=== PATIENT | female | born 1940 | race Caucasian/White ===

== ENCOUNTER 2018-10-10 16:24 | Inpatient (IN) | payer MEDICARE, OTHER ==
[~2018-10-10] VITALS: Ht 157.5 cm; Wt 48.5 kg
[2018-10-10] MEDS ORDERED: ONDANSETRON HCL/PF 4 MG/2 ML VIAL IVP ONE (16:30)
[2018-10-10] MEDS ORDERED: IV NS 0.9% 500 ML BAG IV ONE (16:30)
--- NOTE | 2018-10-10 16:37 | NUR ---
PT BIBRA FROM HOME FOR ABD PAIN. PER REPORT PT'S BEEN CONSTIPATED, HAD SMALL BM THIS AM. PT AAOX4, RESIPIRATIONS EVEN AND UNLABORED, NO SOB, NAD NOTED, VSS, PENDING ER PROVIDER ANAHIAL
[2018-10-10] MEDS ORDERED: ONDANSETRON HCL/PF 4 MG/2 ML VIAL ONE ×2 (16:38→17:36)
[2018-10-10 16:40] LABS: BASOPHILS # (AUTO) 0.1 /CMM (0.0-0.2); BASOPHILS % (AUTO) 0.5 % (0.0-2.0); EOSINOPHILS % (AUTO) 1.5 % (0.0-6.0); HEMATOCRIT 46 % (33-45); HEMOGLOBIN 15.4 g/dL (11.5-14.8); LYMPHOCYTES # (AUTO) 2.7 /CMM (0.8-4.8); LYMPHOCYTES % (AUTO) 24.7 % (20.0-44.0); MEAN CORPUSCULAR HGB CONC 34 g/dl (31.0-36.0); MEAN CORPUSCULAR VOLUME 93 fL (82-100); MONOCYTES # (AUTO) 0.6 /CMM (0.1-1.30); MONOCYTES % (AUTO) 5.5 % (2.0-12.0); NEUTROPHILS # (AUTO) 7.5 /CMM (1.8-8.9); NEUTROPHILS % (AUTO) 67.8 % (43.0-81.0); PLATELET COUNT (AUTO) 299 /CMM (150-450); WHITE BLOOD COUNT (AUTO) 11.1 K/uL (4.3-11.0)
[2018-10-10 16:46] LABS: CARBON DIOXIDE 28 mmol/L (21-32); CHLORIDE 104 mmol/L (98-107); GLUCOSE 177 mg/dL (74-106); POTASSIUM 3.3 mmol/L (3.5-5.1); SODIUM SERUM 141 mmol/L (136-145); UREA NITROGEN, BLOOD 16 mg/dL (7-18)
[2018-10-10 16:52] LABS: ALANINE AMINOTRANSFERASE 24 U/L (12-78); ALBUMIN 3.6 g/dL (3.4-5.0); ALKALINE PHOSPHATASE 66 U/L (46-116); ASPARTATE AMINOTRANSFERASE 19 U/L (15-37); BILIRUBIN,DIRECT 0.1 mg/dL (0.0-0.2); BILIRUBIN,TOTAL 0.5 mg/dL (0.2-1.0); LIPASE 113 U/L (73-393); TOTAL PROTEIN, SERUM 6.7 g/dL (6.4-8.2)
[2018-10-10] MEDS ORDERED: FENTANYL PF 100MCG/2ML AMPUL IV ONE ×2 (17:00→20:00)
[2018-10-10] MEDS ORDERED: FENTANYL PF 100MCG/2ML AMPUL ONE ×2 (17:06→20:11)
[2018-10-10] MEDS ORDERED: IV NS 0.9% 250 ML IV ONE (17:13)
[2018-10-10] MEDS ORDERED: CT SWABBABLE VALVE TRANS SET 1 EA INFUS.SET MC ONE (17:13)
[2018-10-10] MEDS ORDERED: IOHEXOL-300 100 ML VIAL IV ONE (17:13)
[2018-10-10 17:22] LABS: APPEARANCE,URINE Clear (CLEAR); BILIRUBIN,URINE SMALL (NEGATIVE); BLOOD, URINE Negative Ery/uL (NEGATIVE); COLOR,URINE Yellow (YELLOW); KETONES,URINE Trace (NEGATIVE); LEUKOCYTE ESTERASE ,URINE Negative (NEGATIVE); NITRITE, URINE Negative (NEGATIVE); PROTEIN,URINE Negative (NEGATIVE); UGLUCOSE Negative (NEGATIVE)
[2018-10-10] MEDS ORDERED: ONDANSETRON HCL/PF 4 MG/2 ML VIAL IV ONE (17:30)
--- NOTE | 2018-10-10 17:50 | NUR ---
URINE COLLECTED AND SENT TO LAB
[2018-10-10 18:07] LABS: BACTERIA,URINE None seen /HPF (None Seen); HYALINE CASTS, URINE Few /LPF (None Seen); RBC,URINE 0-2 /HPF (0-2); SQUAMOUS EPITHELIAL CELL,UR Few /HPF (None Seen); WBC,URINE 0-2 /HPF (0-3)
[2018-10-10] MEDS ORDERED: HYDR-3973 PO (19:00)
[2018-10-10] MEDS ORDERED: CYCL30DR EACHEYE (19:00)
[2018-10-10] MEDS ORDERED: OLME1TAB46 PO (19:00)
[2018-10-10] MEDS ORDERED: LIDO700A30 TD (19:00)
[2018-10-10] MEDS ORDERED: DEXL60CA3 PO (19:00)
[2018-10-10] MEDS ORDERED: LUBI24CA5 PO (19:00)
[2018-10-10] MEDS ORDERED: SIMV20TA6 PO (19:00)
[2018-10-10] MEDS ORDERED: IBUP-1957 PO (19:00)
[2018-10-10] MEDS ORDERED: METO-356 PO (19:00)
[2018-10-10] MEDS ORDERED: PIPERACILLIN /TAZOBACTAM 3.375 G in IV D5W 50 ML IV ONE (20:00)
[2018-10-10] MEDS ORDERED: METOCLOPRAMIDE HCL 10 MG/2 ML VIAL IV ONE (20:00)
[2018-10-10] MEDS ORDERED: PIPERACILLIN /TAZOBACTAM 3.375 G VIAL IV ONE (20:10)
[2018-10-10] MEDS ORDERED: METOCLOPRAMIDE HCL 10 MG/2 ML VIAL ONE (20:10)
--- NOTE | 2018-10-10 20:34 | NUR ---
REPORT GIVEN TO ANDREW OLIVER FOR [facility]; ADMITTING DX COLITIS [id number]
--- NOTE | 2018-10-10 21:00 | NUR ---
TRANSFERRED TO ROOM 116 VIA HOSSEIN YUEN
--- NOTE | 2018-10-10 21:20 | NUR ---
RN MS ADMISSION NOTES ADMITTED PT TO [facility] UNIT UNDER MS, ARRIVED FORM ED VIA GURNEY ACCOMPANIED BY SON AND DAUGHTER. PT AWAKE ALERT AND ORIENTED X4. BREATHING EVEN AND UNLABORED ON O2 2L NC, NO SOB NOTED. COMPLAINTS OF LOWER ABDOMINAL PAIN 01/31. IV ACCESS ON THE R AC 18G. WITH NS @50ML/HR. PT TO BE NPO WITH STRICT I&O. BED IN LOWEST LOCKED POSITION, CALL LIGHT WITHIN REACH AT ALL TIMES. WILL CONTINUE TO MONITOR
[2018-10-10 21:24] VITALS: BP 120/80
[2018-10-10] MEDS ORDERED: MORPHINE SULFATE INJ 2 MG/ML DISP.SYRIN IV PRN (21:30)
[2018-10-10] MEDS ORDERED: MAG HYDROX/AL HYDROX/SIMETH 30 ML UDC PO PRN (21:30)
[2018-10-10] MEDS ORDERED: HYDROCODONE/APAP 5/325MG 1 EACH TABLET PO PRN (21:30)
[2018-10-10] MEDS ORDERED: ACETAMINOPHEN 325 MG TABLET PO PRN (21:30)
[2018-10-10] MEDS ORDERED: Z GUARD REMEDY 2 OZ OINT TP PRN (21:30)
[2018-10-10] MEDS ORDERED: MAGNESIUM HYDROXIDE 30 ML UDC PO PRN (21:30)
--- NOTE | 2018-10-10 21:32 | NUR ---
Navid nunes in [facility] - 10/10/18 at 2133 by RHILOMEN TRANFERRED TO ROOM 262 VIA ACLS PROTOCOL
[2018-10-10 21:47] VITALS: BP 120/80
[2018-10-10] MEDS: IV NS 0.9% 1,000 ML IV PRN (22:03)
[2018-10-11] MEDS: MORPHINE SULFATE INJ 4 MG/ML DISP.SYRIN IV PRN ×2 (00:44→05:10)
[2018-10-11 04:00] VITALS: BP 122/78
[2018-10-11] MEDS ORDERED: PIPERACILLIN /TAZOBACTAM 3.375 G in IV D5W 50 ML IV ONE (04:00)
[2018-10-11 04:22] VITALS: BP 136/84
[2018-10-11] MEDS ORDERED: PIPERACILLIN /TAZOBACTAM 3.375 G VIAL IV ONE (04:58)
[2018-10-11 06:40] LABS: BASOPHILS % (AUTO) 0.2 % (0.0-2.0); EOSINOPHILS % (AUTO) 0.2 % (0.0-6.0); HEMATOCRIT 43 % (33-45); HEMOGLOBIN 14.5 g/dL (11.5-14.8); LYMPHOCYTES # (AUTO) 1.4 /CMM (0.8-4.8); LYMPHOCYTES % (AUTO) 18.2 % (20.0-44.0); MEAN CORPUSCULAR HGB CONC 34 g/dl (31.0-36.0); MEAN CORPUSCULAR VOLUME 93 fL (82-100); MONOCYTES # (AUTO) 0.7 /CMM (0.1-1.30); MONOCYTES % (AUTO) 9.1 % (2.0-12.0); NEUTROPHILS # (AUTO) 5.6 /CMM (1.8-8.9); NEUTROPHILS % (AUTO) 72.3 % (43.0-81.0); PLATELET COUNT (AUTO) 244 /CMM (150-450); RED BLOOD CELL COUNT(AUTO) 4.66 MIL/uL (4.0-5.2); WHITE BLOOD COUNT (AUTO) 7.8 K/uL (4.3-11.0)
--- NOTE | 2018-10-11 06:45 | NUR ---
RN MS CLOSING NOTES PT REMAINS IN BED, AWAKE ALERT ORIENTEDX4. BREATHING EVEN AND UNLABORED ON 2L OF O2 NC. NO SOB NOTED. NO COMPLAINT OF PAIN OR DISCOMFORT AT THE MOMENT. IV ACCES ON THE R AC18G WITH NS @50ML/HR. ALL NEEDS ATTENDED TO. PT REMAINS NPO. BED IN LOWEST LOCKED POSITION, CALL LIGHT WITHIN REACH AT ALL TIMES, WILL ENDORSE TO DAY NURSE
[2018-10-11 07:08] LABS: CARBON DIOXIDE 28 mmol/L (21-32); CHLORIDE 107 mmol/L (98-107); GLUCOSE 134 mg/dL (74-106); MAGNESIUM 1.9 mg/dL (1.8-2.4); PHOSPHORUS 4.7 mg/dL (2.5-4.9); POTASSIUM 3.4 mmol/L (3.5-5.1); SODIUM SERUM 140 mmol/L (136-145); UREA NITROGEN, BLOOD 13 mg/dL (7-18)
[2018-10-11 07:10] LABS: CHOLESTEROL 128 mg/dL (<200); HDL CHOLESTEROL 65 mg/dL (40-60); LDL 64 mg/dL (0-99); THYROID STIMULATING HORMONE 0.647 uIU/mL (0.358-3.74); TRIGLYCERIDES 49 mg/dL (30-150)
--- NOTE | 2018-10-11 07:44 | NUR ---
MS MORALES OPENING NOTES RECEIVED PATIENT IN STABLE CONDITION. IN NO APPARENT DISTRESS. BEDSIDE RAILS ARE UPX2. BED IS LOCKED AND LOWERED. CALL LIGHT IS WITHIN REACH. WILL CONTINUE TO MONITOR PATIENT. Addendum: 10/11/18 at 0745 by TJ SINGH RN IV LINE IS INTACT AND PATENT
--- NOTE | 2018-10-11 07:44 | NUR ---
MS RN OPENING NOTES RECEIVED PATIENT IN STABLE CONDITION. IN NO APPARENT DISTRESS. BEDSIDE RAILS ARE UPX2. BED IS LOCKED AND LOWERED. CALL LIGHT IS WITHIN REACH. IV LINE IS INTACT AND PATENT. WILL CONTINUE TO MONITOR PATIENT.
[2018-10-11 08:00] VITALS: BP 99/64
[2018-10-11] MEDS: LIDOCAINE 5% (PATCH) 1 EA PATCH TP SCH (09:00)
[2018-10-11] MEDS: METOPROLOL SUCCINATE 25 MG TAB.SR.24H PO SCH (09:00)
[2018-10-11] MEDS: PANTOPRAZOLE 40 MG VIAL IV SCH (09:31)
[2018-10-11] MEDS: HYDROMORPHONE INJ 2 MG/ML DISP.SYRIN IV PRN ×3 (09:32→19:37)
[2018-10-11] MEDS: PIPERACILLIN /TAZOBACTAM 3.375 G in IV D5W 100 ML IV SCH ×2 (09:42→18:17)
[2018-10-11] MEDS ORDERED: PIPERACILLIN /TAZOBACTAM 3.375 G in IV D5W 50 ML IV SCH (12:00)
[2018-10-11] MEDS: OLMESARTAN PO SCH (12:30)
[2018-10-11] MEDS: AMLODIPINE PO SCH (12:30)
[2018-10-11] MEDS: HYDROCHLOROTHIAZIDE PO SCH (12:30)
[2018-10-11] MEDS: POTASSIUM CL. PREMIX PERIPHER. 50 ML IV SCH ×2 (12:54→13:56)
[2018-10-11] MEDS ORDERED: POTASSIUM PHOSPHATE MM 7.5 MMOL in IV D5W 100 ML IV SCH (13:00)
[2018-10-11] MEDS: ONDANSETRON HCL/PF 4 MG/2 ML VIAL IVP PRN (13:37)
[2018-10-11 16:00] VITALS: BP 98/57
--- NOTE | 2018-10-11 16:00 | NUR ---
PATIENT REFUSED SECOND BAG OF POTASSIUM. MADE AWARE. NO NEW ORDERS.
[2018-10-11] MEDS: CYCLOSPORINE 0.05% EACHEYE SCH (17:00)
[2018-10-11] MEDS: SIMVASTATIN 20 MG TABLET PO SCH (17:26)
--- NOTE | 2018-10-11 18:36 | NUR ---
MS RN CLOSING NOTES PATIENT IS IN STABLE CONDITION. IN NO APPARENT DISTRESS. BEDSIDE RAILS ARE UPX2. BED IS LOCKED AND LOWERED. CALL LIGHT IS WITHIN REACH. IV LINE IS INTACT AND PATENT. ALL NEEDS WERE MET. WILL ENDORSE CARE TO DEFENSE TRAVEL ADMINISTRATOR NURSE FOR [facility].
[2018-10-11 20:00] VITALS: BP 113/68
[2018-10-12] MEDS: HYDROMORPHONE INJ 2 MG/ML DISP.SYRIN IV PRN ×4 (00:16→22:06)
[2018-10-12] MEDS: ONDANSETRON HCL/PF 4 MG/2 ML VIAL IVP PRN ×3 (01:07→17:47)
[2018-10-12] MEDS: PIPERACILLIN /TAZOBACTAM 3.375 G in IV D5W 100 ML IV SCH ×3 (02:58→17:50)
[2018-10-12 04:00] VITALS: BP 101/68
--- NOTE | 2018-10-12 06:45 | NUR ---
RN NOTE PATIENT IS IN STABLE CONDITION, PAIN IS WELL CONTROLLED WITH PAIN MEDICATION, NO APPARENT DISTRESS. BEDSIDE RAILS ARE UPX2. BED IS LOCKED AND LOWERED. CALL LIGHT IS WITHIN REACH. IV LINE IS INTACT AND PATENT. ALL NEEDS ARE MET. WILL ENDORSE CARE TO AM SHIFT NURSE TO CONTINUE CARE
[2018-10-12 07:44] LABS: CARBON DIOXIDE 26 mmol/L (21-32); CHLORIDE 108 mmol/L (98-107); CREATININE 0.9 mg/dL (0.6-1.3); GLUCOSE 106 mg/dL (74-106); POTASSIUM 3.1 mmol/L (3.5-5.1); SODIUM SERUM 144 mmol/L (136-145); UREA NITROGEN, BLOOD 13 mg/dL (7-18)
[2018-10-12 08:00] VITALS: BP 92/58
[2018-10-12] MEDS: IV NS 0.9% 1,000 ML IV PRN (08:31)
[2018-10-12] MEDS: METOPROLOL SUCCINATE 25 MG TAB.SR.24H PO SCH (09:00)
[2018-10-12] MEDS: AMLODIPINE PO SCH (09:00)
[2018-10-12] MEDS: LIDOCAINE 5% (PATCH) 1 EA PATCH TP SCH ×2 (09:00→09:15)
[2018-10-12] MEDS: HYDROCHLOROTHIAZIDE PO SCH (09:00)
[2018-10-12] MEDS: OLMESARTAN PO SCH (09:00)
[2018-10-12] MEDS: CYCLOSPORINE 0.05% EACHEYE SCH ×3 (09:00→17:29)
[2018-10-12] MEDS: PANTOPRAZOLE 40 MG VIAL IV SCH (09:14)
[2018-10-12] MEDS ORDERED: POTASSIUM CL. PREMIX PERIPHER. 50 ML IV SCH (10:35)
[2018-10-12 13:00] VITALS: BP 99/53
[2018-10-12] MEDS: POTASSIUM CHLORIDE 20 MEQ TAB.PRT.SR PO SCH ×2 (13:34→15:01)
[2018-10-12] MEDS ORDERED: BISACODYL (5 MG) 5 MG TABLET.DR PO ONE (14:30)
[2018-10-12] MEDS ORDERED: BISACODYL SUPP (10 MG) 10 MG/SUPP.RECT SUPP.RECT RC PRN (14:30)
[2018-10-12] MEDS: SENNOSIDES 8.6 MG TABLET PO SCH ×2 (15:04→17:27)
[2018-10-12 16:00] VITALS: BP_SYST 107; BP_SYST 92; BP_DIAS 58; BP_DIAS 59
[2018-10-12] MEDS: DOCUSATE SODIUM 250 MG CAPSULE PO SCH (17:27)
[2018-10-12] MEDS: SIMVASTATIN 20 MG TABLET PO SCH (17:28)
--- NOTE | 2018-10-12 19:00 | NUR ---
RN NOTES RECEIVE PT IN THE BED A/O X 3 IN STABLE CONDITION, NOT IN DISTRESS, SAFETY MEASURES IN PLACE. WILL CONTINUE TO MONITOR.
[2018-10-12 20:00] VITALS: BP 116/68
[2018-10-12] MEDS ORDERED: POLYETHYLENE GLYCOL 3350 17 GM POWD.PACK PO SCH (22:00)
[2018-10-13] MEDS: PIPERACILLIN /TAZOBACTAM 3.375 G in IV D5W 100 ML IV SCH ×2 (01:06→10:40)
[2018-10-13] MEDS: IV NS 0.9% 1,000 ML IV PRN (01:38)
[2018-10-13] MEDS: HYDROMORPHONE INJ 2 MG/ML DISP.SYRIN IV PRN (03:53)
[2018-10-13] MEDS: ONDANSETRON HCL/PF 4 MG/2 ML VIAL IVP PRN (03:54)
[2018-10-13 04:00] VITALS: BP 118/71
--- NOTE | 2018-10-13 06:10 | NUR ---
RN CLOSING NOTE ASLEEP AND EASILY AWAKEN, STABLE CONDITION, NOT IN DISTRESS. NO COMPLAIN OF PAIN. RESPIRATIONS EVEN AND UNLABORED. NURSING CARE RENDERED, GOOD SKIN CARE PROVIDED. NEEDS ATTENDED AND ANTICIPATED. KEPT CLEAN AND DRY AND COMFORT, SAFETY MEASURES IN PLACE, CALL LIGHT WITHIN REACH. WILL ENDORSE TO METAL BONDING ASSEMBLER FOR [facility].
[2018-10-13 07:27] LABS: CALCIUM, SERUM 8.6 mg/dL (8.5-10.1); CARBON DIOXIDE 24 mmol/L (21-32); CHLORIDE 108 mmol/L (98-107); GLUCOSE 119 mg/dL (74-106); MAGNESIUM 1.9 mg/dL (1.8-2.4); PHOSPHORUS 2.2 mg/dL (2.5-4.9); POTASSIUM 3.2 mmol/L (3.5-5.1); SODIUM SERUM 143 mmol/L (136-145); UREA NITROGEN, BLOOD 7 mg/dL (7-18)
[2018-10-13 07:30] LABS: BASOPHILS % (AUTO) 0.4 % (0.0-2.0); HEMATOCRIT 38 % (33-45); HEMOGLOBIN 12.8 g/dL (11.5-14.8); LYMPHOCYTES # (AUTO) 1.6 /CMM (0.8-4.8); LYMPHOCYTES % (AUTO) 27.1 % (20.0-44.0); MEAN CORPUSCULAR HGB CONC 34 g/dl (31.0-36.0); MEAN CORPUSCULAR VOLUME 93 fL (82-100); MONOCYTES # (AUTO) 0.5 /CMM (0.1-1.30); MONOCYTES % (AUTO) 8.6 % (2.0-12.0); NEUTROPHILS # (AUTO) 3.6 /CMM (1.8-8.9); NEUTROPHILS % (AUTO) 58.9 % (43.0-81.0); PLATELET COUNT (AUTO) 233 /CMM (150-450); RED BLOOD CELL COUNT(AUTO) 4.05 MIL/uL (4.0-5.2)
[2018-10-13 08:00] VITALS: BP 141/84
[2018-10-13] MEDS: HYDROCHLOROTHIAZIDE PO SCH ×2 (08:16→08:57)
[2018-10-13] MEDS: AMLODIPINE PO SCH ×2 (08:16→08:57)
[2018-10-13] MEDS: OLMESARTAN PO SCH ×2 (08:16→08:57)
[2018-10-13 08:18] VITALS: BP 141/84
[2018-10-13] MEDS: CYCLOSPORINE 0.05% EACHEYE SCH (08:18)
[2018-10-13] MEDS: SENNOSIDES 8.6 MG TABLET PO SCH ×2 (08:18→08:57)
[2018-10-13] MEDS: DOCUSATE SODIUM 250 MG CAPSULE PO SCH (08:18)
[2018-10-13] MEDS: METOPROLOL SUCCINATE 25 MG TAB.SR.24H PO SCH (08:18)
[2018-10-13] MEDS: PANTOPRAZOLE 40 MG VIAL IV SCH (08:18)
[2018-10-13] MEDS: LIDOCAINE 5% (PATCH) 1 EA PATCH TP SCH (08:21)
[2018-10-13] MEDS: POTASSIUM CHLORIDE 20 MEQ TAB.PRT.SR PO SCH ×2 (10:40→11:28)
[2018-10-13] MEDS ORDERED: NEUTRA PHOS 1 POWD.PACKET PO ONE (12:00)
--- NOTE | 2018-10-13 14:12 | NUR ---
RN NOTE PT SEEN BY DR ROBLES, PER HIM, PT CAN HAVE ADVANCED DIET, STOP LAXATIVES AND D/C HOME. DR GALINDO NOTIFIED.
--- NOTE | 2018-10-13 14:16 | NUR ---
RN NOTE PT REFUSED ABDOMINAL XRAY KUB. Addendum: 10/13/18 at 1417 by EDMAR SPENCE RN RISKS AND BENEFITS EXPLAINED, STILL REFUSED, DAUGHTER AT BEDSIDE, NOTIFIED.
--- NOTE | 2018-10-13 16:38 | NUR ---
RN NOTE PT DISCHARGED HOME WITH DAUGHTER KE, IN STABLE CONDITION, IV REMOVED, ID BAND REMOVED, EXIT CARE DONE, DISCHARGE INSTRUCTIONS PROVIDED TO PT TEACHING DONE TO PT AND PAPERS SIGNED, BELONGINGS PROVIDED TO PT, HOME MEDS GIVEN BACK TO PT, PICTURES TAKEN AND PLACED IN CHART.
== END 2018-10-13 16:30 | disposition home or self-care (01) | DRG 372 ==
LOC: ER 16:26 → MEDSG1 20:42
PROVIDERS: ADMIT Nurse Practitioner Acute Care; ATTEND Internal Medicine
DX: A04.9 Bacterial intestinal infection, unspecified (principal); J98.11 Atelectasis; K57.92 Diverticulitis of intestine, part unspecified, without perforation or abscess without bleeding; E78.5 Hyperlipidemia, unspecified; I10 Essential (primary) hypertension; K44.9 Diaphragmatic hernia without obstruction or gangrene; M81.0 Age-related osteoporosis without current pathological fracture; E87.6 Hypokalemia; R73.9 Hyperglycemia, unspecified; D72.829 Elevated white blood cell count, unspecified; Z90.49 Acquired absence of other specified parts of digestive tract
CPT/HCPCS: 36415; 71045-TC; 80048-TC; 80061-TC; 80076-TC; 81000-TC; 82962-TC; 83690-TC; 83735-TC; 84100-TC; 84443-TC; 84484-TC; 85025-TC; 85730-TC; 87081-TC; C9113; G0378; J1170; J2270; J2405; J2543; J2765; J3010; J3480; J3490; J7030; J7050; J7060; Q9967